=== PATIENT | female | born 1940 | race Caucasian/White ===

== ENCOUNTER 2022-06-11 11:02 | Emergency (ER) | payer MEDICARE, SELFPAY ==
--- NOTE | ~2022-06-11 | CT_ITS ---
EXAMINATION: CT CHEST, ABDOMEN AND PELVIS WITHOUT CONTRAST CLINICAL INFORMATION: Reason for Exam chest pain, hx of kidney disease history of aneurysm. COMPARISON: Chest radiograph done earlier today. TECHNIQUE: Multidetector volumetric imaging was performed from the thoracic inlet through the pubic symphysis without intravenous contrast. Oral contrast: No Sagittal and coronal reformatted images were obtained on the technologist workstation. This CT examination was performed using dose optimization techniques as appropriate, variously including the following: *Automated exposure control. *Adjustment of mA and/or kV according to patient size (this includes techniques or standardized protocols for targeted exams where dose is matched to indication/reason for exam; i.e. extremities or head). *Use of iterative reconstruction technique. Total exam dose-length product 700 mGy-cm FINDINGS: Technically limited study due to lack of intravenous contrast. LUNG: Linear pleuroparenchymal airspace disease is noted in the region of the lingula likely represent hypoventilatory, atelectatic changes or evolving pleural-parenchymal scar. Few tiny calcifications are noted within the right middle lobe, likely represent old granulomatous disease. No suspicious lung nodule and/or mass. Presumed pleural parenchymal scar at both lung apices. PLEURA: No pleural effusion or pneumothorax. MEDIASTINUM: Normal heart size. No pericardial effusion. Extensive calcified right paratracheal lymphadenopathy is present. VASCULAR: Ascending thoracic aortic aneurysm is present, measures 5.0 cm at its maximum dimension (269:8). There is no periaortic hyperdensity to suspect hemorrhage. Given the lack of intravenous contrast, aortic dissection as you know is not excluded. Extensive multivessel coronary artery calcifications are also noted. CHEST WALL/AXILLA: No axillary or internal mammary lymphadenopathy. Intact right sided saline breast implant is noted. The left-sided breast implant appears to be collapsed. LIVER, GALLBLADDER AND BILIARY TREE: The liver is normal in size, shape, and attenuation. No biliary ductal dilatation is present. Circumscribed subcentimeter hypodensities are noted within the right and left lobes of the liver (171:12) likely represent incidental cysts, not optimally characterized. The gallbladder is unremarkable with no evidence of radiopaque gallstones, gallbladder wall thickening, or obvious pericholecystic inflammatory changes. PANCREAS: Normal; no mass or surrounding fluid. SPLEEN: Normal size. Multiple presumed calcified granulomas are present. ADRENAL GLANDS: Normal; no mass. KIDNEYS AND URETERS: The kidneys are normal in size, shape, and attenuation. No hydronephrosis, hydroureter. Sub-5 mm radiodensity is noted within the superior posterior calyx of the left kidney (198:12), most consistent with a nonobstructing calculus GASTROINTESTINAL TRACT: Stomach and small bowel non-dilated. No colonic wall thickening or pericolonic inflammatory changes. Nonvisualized appendix, without any inflammatory changes around the cecum. Colonic diverticulosis related changes are noted. ABDOMINAL WALL: No significant hernia is appreciated. LYMPHOVASCULAR STRUCTURES: Diffuse atherosclerotic disease of the aorta and is branches without aneurysm formation. There are no pathologically enlarged lymphadenopathy present. BLADDER: No focal mass or wall thickening seen. No bladder calculi. PELVIC VISCERA: There is no pelvic mass present. No evidence of any free fluid and/or free air. OSSEOUS STRUCTURES: Moderate to severe mid to anterior compression fracture with retropulsion of small posterior superior fracture fragment into the adjacent anterior epidural space is noted at L1 vertebral body, of indeterminate etiology and chronicity.. CT/CT abdomen pelvis wo con IMPRESSION: 1. Technically limited study due to lack of intravenous contrast. 2. Ascending thoracic aortic aneurysm measuring 5.0 cm. Possibility of superimposed acute aortic syndrome including aortic dissection, and penetrating ulcer are not excluded on this nonintravenous contrast study. However, no evidence of any aortic intramural or periaortic hematoma visualized. 3. Large calcified mediastinal lymph nodes, presumably represent old granulomatous disease. There are no prior studies available for comparison. 4. Presumed calcified granulomas within the right middle lobe and within the spleen. 5. Circumscribed subcentimeter hypodensities are noted within the right and left lobe of the liver, not optimally characterized. 6. Solitary sub-5 mm radiodensity within the superior posterior calyx of the left kidney, most consistent with a nonobstructing calculus. 7. Diffuse atherosclerotic disease of the aorta and is branches without aneurysm formation. 8. Moderate to severe mid to anterior compression fracture of L1 vertebral body with retropulsion of small posterior superior fracture fragment into the adjacent anterior epidural space, of indeterminate etiology and chronicity. The current study was read without the benefit of direct visual comparison with prior studies. Subtle findings can only be apparent when comparison is made with prior studies. If prior studies become available, following comparison, an addendum will be dictated.
--- NOTE | ~2022-06-11 | XR_ITS ---
EXAMINATION: XR CHEST CLINICAL INFORMATION: 81-year-old female with chest pain COMPARISON: None TECHNIQUE: Frontal view of the chest was obtained. FINDINGS: Lungs are clear without nodules infiltrates or pleural effusions seen. There is tortuosity of the descending aorta possibly aneurysmally dilated. There is calcifications in the mediastinal lymph nodes No fracture deformity of ribs #7 and 8 on the right due to remote trauma XR/XR chest 1V IMPRESSION: Tortuous thoracic aorta, due to possibly due to aneurysmal dilatation.
--- NOTE | ~2022-06-11 | CT_ITS ---
EXAMINATION: CT Chest, Abdomen, and Pelvis CLINICAL INFORMATION: Possible dissection COMPARISON: CT chest abdomen pelvis on 06/11/2022 TECHNIQUE: Helical computed tomography was performed from the inferior neck through the pubic symphysis after administration of 70 mL of Omnipaque 350 intravenous contrast. Multiplanar reconstructions are available for interpretation. MIPS images were produced and reviewed. DOSE LOWERING TECHNIQUES: This CT examination was performed using dose optimization techniques as appropriate, variously including the following: - Automated exposure control - Adjustment of mA and/or kV according to patient size (this includes techniques or standardized protocols for targeted exams were dose is matched to indication/reason for exam; i.e. extremities or head) - Use of degenerative construction technique Total DLP is 453 mGy*cm. FINDINGS: Lungs: Pleural/parenchymal scarring at the bilateral apices. Mild bilateral basilar atelectasis. Calcified granulomas in the right middle lobe. Airways: The central airways are patent. The peripheral airways are normal. There is no bronchiectasis. Pleura: The pleural surfaces are normal bilaterally. There is no pleural effusion. There is no pneumothorax. Mediastinum/Meredith: Conglomeration of calcified lymph nodes in the mid mediastinum and right paratracheal regions. Cardiovascular: The heart is globally normal in size. The main pulmonary artery is normal in caliber. There is no pericardial effusion or pericardial thickening. The ascending thoracic aorta is enlarged measuring up to 5.0 cm. There is mild atherosclerotic disease of the arch and descending thoracic aorta. The descending thoracic aorta is normal in caliber. There is a normal 3 vessel branching pattern. There are coronary artery calcifications. Liver: Normal in size and attenuation. Multiple hepatic cysts. Gallbladder and bile ducts: The gallbladder is normal. No intrahepatic or extrahepatic biliary ductal dilatation. Spleen: Normal in size and attenuation. Pancreas: Unremarkable. Adrenal glands: Unremarkable. Right kidney: The right kidney is normal. There is no hydronephrosis or hydroureter. Left kidney: The left kidney is normal. There is no hydronephrosis or hydroureter. 4 mm nonobstructing left lower pole calculus. Lymph nodes: There is no lymphadenopathy in the abdomen or pelvis. Gastrointestinal tract: The stomach, small, and large bowel are normal in course and caliber. Colonic diverticulosis is noted. Urinary bladder: The bladder is normal. Pelvic organs: Multiple calcified fibroids. Vasculature: The abdominal aorta is normal in course and caliber. Mild atherosclerotic disease. The SMA, celiac artery, bilateral renal arteries, and TIFFANY are patent. The iliofemoral arteries are patent. Additional findings: There is no intraperitoneal free air or fluid. Soft tissues: There are bilateral breast implants. The left breast implant is punctured. Osseous structures: L1 compression fracture. Anterolisthesis at L3-L4 and L4-L5. CT/CT angio abdomen pelvis IMPRESSION: Redemonstration of 5 cm ascending aortic aneurysm. No evidence of acute aortic syndrome including dissection or penetrating ulcer.
--- NOTE | 2022-06-11 11:05 | ECG_ITS ---
Test Reason : CP Blood Pressure : / mmHG Vent. Rate : 063 BPM Atrial Rate : 090 BPM P-R Int : 168 ms QRS Dur : 114 ms QT Int : 404 ms P-R-T Axes : 000 -12 130 degrees QTc Int : 413 ms Sinus rhythm with Premature atrial complexes Left ventricular hypertrophy with repolarization abnormality ( R in aVL , [place] product ) Abnormal ECG No previous ECGs available Referred By: Generic ED Physician Electronically Signed By:ULISES PIMENTEL
[2022-06-11 11:13] VITALS: BP 122/89; PULSE 53; RESP 18; TEMP 36.4; O2SAT 96; BMI 23.0
[2022-06-11 11:22] LABS: MANUAL DIFF FLAG NO
[2022-06-11 11:24] LABS: Basophils Absolute Auto 0.1 X10*3/uL (0.0-0.2); Basophils Percent Auto 0.8 % (0-2); Eosinophils Absolute Auto 0.1 X10*3/uL (0.0-0.4); Eosinophils Percent Auto 1.4 % (0-4); Hematocrit 40.7 % (37.0-47.0); Hemoglobin 13.4 g/dl (12.0-16.0); Imm Gran Abs Auto 0.02 X10*3/uL (0.00-0.03); Imm Gran Pct Auto 0.3 % (0.0-0.4); Lymphocytes Absolute Auto 2.1 X10*3/uL (1.2-4.9); Lymphocytes Percent Auto 28.1 % (20-40); Mean Corpuscular HGB Conc 32.9 g/dl (31.0-35.0); Mean Corpuscular Hemoglobin 28.5 pg (27.0-33.0); Mean Corpuscular Volume 86.4 fL (80.0-98.0); Mean Platelet Volume 9.6 fL (9.4-12.3); Monocytes Absolute Auto 0.5 X10*3/uL (0.1-1.2); Monocytes Percent Auto 6.8 % (2-11); Neutrophils Absolute Auto 4.6 x10*3/uL (2.0-8.3); Neutrophils Percent Auto 62.6 % (45-73); Platelet Count 205 X10*3/uL (160-400); Red Blood Count 4.71 X10*6/uL (4.20-5.50); Red Cell Distribution Width 13.7 % (11.0-16.0); White Blood Count 7.3 X10*3/uL (4.8-10.8)
[2022-06-11 11:38] LABS: Anion Gap 15 (12-20); Blood Urea Nitrogen 29 mg/dL (9-16); Calcium 10.3 mg/dL (8.4-10.2); Carbon Dioxide 29 mmol/L (22-29); Chloride 101 mmol/L (96-108); Creatinine Clr Calc Pharmacy 19.6; Estimated Glomerular Filt Rate 26; Glucose Random 109 mg/dL (60-115); Potassium 3.3 mmol/L (3.3-5.1); Sodium 142 mmol/L (135-145)
[2022-06-11 11:45] LABS: Troponin-I High Sensitivity 21.3 ng/L (<3.5-17.0)
--- NOTE | 2022-06-11 12:10 | ED_ITS ---
HPI - Chest Pain General Chief Complaint: Chest Pain Stated Complaint: chest pains Time Seen by Provider: 06/11/22 11:24 Source: patient Mode of arrival: ambulatory Limitations: no limitations History of Present Illness HPI narrative: Patient is an 81 year old female presenting to the emergency department today with left sided chest pain and jaw pain. Patient states that she is from [place] and she [place] in town for a horse show. Patient states that this morning while getting ready, she got a heavy sensation in her left chest that radiated into her left jaw. Patient states that she takes Fleccanide for atrial fibrillation. Patient states that the chest pain lasted 1 hour and resolved. Patient states t hat she does have a history of an aortic aneurysm that is tracked by her observatory director back home. Patient's records via the portal on her phone indicate that the patient's thoracic aortic aneurysm measures 4.5-4.7 cm. Patient states that they have to measure it by US because her kidney disease doesn't allow her to have IV contrast dye. Patient denies any current dizziness, lightheadedness, abdominal pain, nausea, vomiting, fever, chills, blurry vision, double vision, loss of vision, chest pain, difficulty breathing, shortness of breath, back pain, night sweats, pain with urination, increased urinary frequency, increased urinary urgency, blood in her urine or stool, syncope or a near syncopal episode, recent trauma or falls, bowel incontinence, bladder incontinence, bowel retention, bladder retention, or any other complaints at this time. MD complaint: chest pain Timing of current episode: episodic Prior episodes: No Onset: during rest Pain location: left chest Pain radiation: jaw/teeth Severity: mild Pain scale (0-10): 4 Quality: heaviness Relieving factors: nothing Exacerbating factors: nothing Treatment prior to arrival: none Risk Factors Thoracic aortic dissection risk factors: history of thoracic aortic aneurysm Related Data Allergies Allergy/AdvReac Type Severity Reaction Status Date / Time shellfish derived Allergy Intermediate Swelling Verified 06/11/22 11:13 Review of Systems Constitutional: Constitutional: Reports no additional constitutional complaints, Denies chills, Denies fever(s) and Denies night sweats Eyes: Eyes: Reports no additional eye complaints, Denies blurry vision, Denies change in vision, Denies diplopia, Denies eye discharge, Denies loss of vision and Denies eye pain ENT: Denies dizziness Cardiovascular: Cardiovascular: Reports no additional cardiovascular complaints, Denies chest pain, Denies lightheadedness, Denies Loss of Consciousness and Denies dyspnea Respiratory: Respiratory: Reports no additional respiratory complaints and Denies dyspnea Gastrointestinal: Gastrointestinal: Reports no additional gastrointestinal complaints, Denies abdominal pain, Denies melena, Denies hematochezia, Denies change in bowel habits and Denies change in stool character Genitourinary: Genitourinary: Denies hematuria, Denies urinary frequency, Denies dysuria, Denies urinary incontinence, Denies urinary hesitancy and Denies urinary urgency Musculoskeletal: Musculoskeletal: Reports no additional musculoskeletal complaints, Denies numbness and Denies tingling Neurologic: Denies dizziness, Denies loss of vision, Denies numbness and Denies tingling Psychiatric: Psychiatric: Reports no additional psychiatric complaints Endocrine: Endocrine: Reports no additional endocrine complaints Hematologic/Lymphatic: Hematologic/Lymphatic: Reports no additional hematologic/lymphatic complaints Allergic/Immunologic: Allergic/Immunologic: Reports no additional allergic/immunologic complaints PMFSH Past Medical History Attestation statement: The following information was validated with the patient. Source: old records reviewed Social History Social History Advance Directives: No Advance Directives Information Provided: No Physical Exam Vital Signs: Vital Signs: Last Vital Signs Temp 97.5 F 06/11/22 11:13 Pulse 65 06/11/22 14:23 Resp 22 H 06/11/22 14:23 BP 148/89 H 06/11/22 14:23 Pulse Ox 97 06/11/22 14:23 O2 Del Method 06/11/22 14:23 BMI result Body Mass Index 23.0 Const: General: cooperative, no acute distress, alert and awake Nutritional Appearance: well nourished Orientation/consciousness: patient oriented x3 Limitations: no limitations HEENT: Head: Yes normal to inspection and Yes atraumatic Ears: hearing grossly normal bilaterally and external ears normal General nose exam: Normal external nose present, no nasal discharge noted and no epistaxis Face and sinus: Yes normal facial exam, No abrasion and No laceration Mouth: Normal oral and palatal mucosa present, no drooling and no muffled voice Eyes: General: appearance normal, both eyes and all related structures Periorbital: periorbital findings normal Eyelids: Yes eyelids normal Conjunctivae: conjunctivae normal Pupils: Equal, round and reactive pupils present EOM: EOMs intact bilaterally Neck: Neck: Yes normal visual inspection, Yes full ROM and Yes no ly mphadenopathy Chest: Chest palpation & inspection: normal inspection of the chest Resp: Effort & Inspection: normal respiratory effort and able to speak in complete sentences Auscultation: clear to auscultation bilaterally Cardio: Rate: regular rate Rhythm: regular rhythm GI: Inspection: Yes normal to inspection Neuro: General: patient oriented x3 and moves all extremities Cranial nerves: Yes Equal, round and reactive pupils present Cognition (Neuro): normal cognition Motor exam (neuro): 5/5 motor strength present throughout Sensory Exam: Normal double simultaneous stimulation for sensation Coordination: [id number] test normal Extrem: General: Yes normal to inspection, Yes full ROM and Yes capillary refill normal Psych: Appearance: grossly normal Mental Status: mental status grossly normal Affect: normal affect Attitude: cooperative Thought process: Normal thought process present Thought content: Normal thought content present Insight: Good insight present (Psych) Course Consultations Consultation #1: Spoke to Dr. Aldana who recommended the patient be transferred to [facility] for possible echo. Time: 16:00 Consultation #2: Spoke to [facility] transfer line. Dr. Zaragoza from cardiothoracic surgery was paged. Time: 16:10 Consultation #3: Spoke to [facility] cardiothoracic surgeon Dr. Zaragoza who recommended the patient have a CTA and if that is negative for dissection, she follow up with her observatory director back in [place]. Time: 16:30 MDM - Chest Pain MDM Narrative Medical decision making narrative: Patient is an 81 year old female presenting to the emergency department today with resolved chest pain. Patient's physical exam was unremarkable. Patient did not have any repeat chest pain while in the department. Patient's blood work showed an elevated creatinine of 1.86, a BUN of 29, and a troponin of 21.3. Patient's repeat troponin was 21.8. When reviewing the patient's previous labs from her providers back home, the elevated creatinine, decreased GFR, and elev ated BUN are chronic for the patient secondary to her kidney disease. Patient's initial EKG and repeat EKG were unremarkable. Patient's chest x-ray showed a tortuous thoracic aorta possibly due to aneurysmal dilatation. Patient's chest CT without contrast showed an ascending thoracic aorta aneurysm measuring 5.0cm, unclear if superimposed acute aortic syndrome present due to lack of IV contrast. After conversation with Dr. Aldana and Dr. Zaragoza from [facility], and the patient, performing a CTA of the chest was decided on to definitively rule out an acute aortic process. Patient's CTA of the chest showed a 5.0 cm ascending aortic aneurysm with no evidence of acute aortic syndrome including dissection or penetrating ulcer. Patient's scans did show multiple incidental findings that I recommended the patient follow up with on with her PCP. I explained my physical exam findings as well as all test results to the patient and the patient's children Keturah. . I answered all questions asked by the patient and the patient's children. I stressed the importance of the patient taking her medication as prescribed. I stressed the importance of the patient following up with her primary care provider and her observatory director. I stressed the importance of the patient returning to the emergency department immediately if her symptoms were to worsen or if she were to develop any dizzin ess, shortness of breath, difficulty breathing, chest pain, blurry vision, loss of vision, nausea, vomiting, abdominal pain, fever, chills, back pain, or any other complaints. Patient and the patient's children verbalized agreement and understanding with this treatment plan and discharge. Differential Diagnosis Differential diagnosis: Likely atypical chest pain and chest pain Differential diagnosis: Dissection Medical Records Data Attestation: I reviewed the patient's medical records. Lab Data Attestation: I reviewed the patient's lab results. Result diagrams: 06/11/22 11:17 06/11/22 11:17 Labs: Lab Results 06/11/22 06/11/22 06/11/22 Range/Units 11:17 11:17 11:17 WBC 7.3 (4.8-10.8) X10*3/uL RBC 4.71 (4.20-5.50) X10*6/uL Hgb 13.4 (12.0-16.0) g/dl Hct 40.7 (37.0-47.0) % MCV 86.4 (80.0-98.0) fL MCH 28.5 (27.0-33.0) pg MCHC 32.9 (31.0-35.0) g/dl RDW 13.7 (11.0-16.0) % Plt Count 205 (160-400) X10*3/uL MPV 9.6 (9.4-12.3) fL Immature Gran % (Auto) 0.3 (0.0-0.4) % Neut % (Auto) 62.6 (45-73) % Lymph % (Auto) 28.1 (20-40) % [place] % (Auto) 6.8 (2-11) % Eos % (Auto) 1.4 (0-4) % Baso % (Auto) 0.8 (0-2) % Lymph # (Auto) 2.1 (1.2-4.9) X10*3/uL [place] # (Auto) 0.5 (0.1-1.2) X10*3/uL Eos # (Auto) 0.1 (0.0-0.4) X10*3/uL Baso # (Auto) 0.1 (0.0-0.2) X10*3/uL Abs Immat Gran (auto) 0.02 (0.00-0.03) X10*3/uL Absolute Neuts (auto) 4.6 (2.0-8.3) x10*3/uL Absolute Nucleated RBC 0.000 (0.0-0.012) X10*3/uL Nucleated RBC % (auto) 0.0 (0.0-0.2) /100WBC Sodium 142 (135-145) mmol/L Potassium 3.3 (3.3-5.1) mmol/L Chloride 101 (96-108) mmol/L Carbon Dioxide 29 (22-29) mmol/L Anion Gap 15 (12-20) BUN 29 H (9-16) mg/dL Creatinine 1.86 H (0.5-1.4) mg/dL Estim Creat Clear Calc 19.6 Estimated GFR 26 Random Glucose 109 (60-115) mg/dL Calcium 10.3 H (8.4-10.2) mg/dL Troponin I High Sens 21.3 H (<3.5-17.0) ng/L COVID-19 ([facility]) (Negative) COVID-19 Clin Com 06/11/22 06/11/22 Range/Units 13:26 16:22 WBC (4.8-10.8) X10*3/uL RBC (4.20-5.50) X10*6/uL Hgb (12.0-16.0) g/dl Hct (37.0-47.0) % MCV (80.0-98.0) fL MCH (27.0-33.0) pg MCHC (31.0-35.0) g/dl RDW (11.0-16.0) % Plt Count (160-400) X10*3/uL MPV (9.4-12.3) fL Immature Gran % (Auto) (0.0-0.4) % Neut % (Auto) (45-73) % Lymph % (Auto) (20-40) % [place] % (Auto) (2-11) % Eos % (Auto) (0-4) % Baso % (Auto) (0-2) % Lymph # (Auto) (1.2-4.9) X10*3/uL [place] # (Auto) (0.1-1.2) X10*3/uL Eos # (Auto) (0.0-0.4) X10*3/uL Baso # (Auto) (0.0-0.2) X10*3/uL Abs Immat Gran (auto) (0.00-0.03) X10*3/uL Absolute Neuts (auto) (2.0-8.3) x10*3/uL Absolute Nucleated RBC (0.0-0.012) X10*3/uL Nucleated RBC % (auto) (0.0-0.2) /100WBC Sodium (135-145) mmol/L Potassium (3.3-5.1) mmol/L Chloride (96-108) mmol/L Carbon Dioxide (22-29) mmol/L Anion Gap (12-20) BUN (9-16) mg/dL Creatinine (0.5-1.4) mg/dL Estim Creat Clear Calc Estimated GFR Random Glucose (60-115) mg/dL Calcium (8.4-10.2) mg/dL Troponin I High Sens 21.8 H (<3.5-17.0) ng/L COVID-19 ([facility]) Negative (Negative) COVID-19 Clin Com See Note Imaging Data Chest x-ray: Attestation: I personally reviewed and interpreted this imaging study as follows: My impression: Tortuous thoracic aorta Radiologist's impression: EXAMINATION: XR CHEST CLINICAL INFORMATION: 81-year-old female with chest pain COMPARISON: None TECHNIQUE: Frontal view of the chest was obtained. FINDINGS: Lungs are clear without nodules infiltrates or pleural effusions seen. There is tortuosity of the descending aorta possibly aneurysmally dilated. There is calcifications in the mediastinal lymph nodes No fracture deformity of ribs #7 and 8 on the right due to remote trauma XR/XR chest 1V IMPRESSION: Tortuous thoracic aorta, due to possibly due to aneurysmal dilatation. Dictated By: Manish Colunga MD Signed By: Electronically signed by Manish Colunga MD 06/11/[address] Chest, abdomen, pelvis without contrast: Attestation: I personally reviewed and interpreted this imaging study as follows: My impression: Ascending thoracic aortic aneurysm. Radiologist's impression: EXAMINATION: CT CHEST, ABDOMEN AND PELVIS WITHOUT CONTRAST CLINICAL INFORMATION: Reason for Exam chest pain, hx of kidney disease history of aneurysm. COMPARISON: Chest radiograph done earlier today. TECHNIQUE: Multidetector volumetric imaging was performed from the thoracic inlet through the pubic symphysis without intravenous contrast. Oral contrast: No Sagittal and coronal reformatted images were obtained on the technologist workstation. This CT examination was performed using dose optimization techniques as appropriate, variously including the following: *Automated exposure control. *Adjustment of mA and/or kV according to patient size (this includes techniques or standardized protocols for targeted exams where dose is matched to indication/reason for exam; i.e. extremities or head). *Use of iterative reconstruction technique. Total exam dose-length product 700 mGy-cm FINDINGS: Technically limited study due to lack of intravenous contrast. LUNG: Linear pleuroparenchymal airspace disease is noted in the region of the lingula likely represent hypoventilatory, atelectatic changes or evolving pleural-parenchymal scar. Few tiny calcifications are noted within the right middle lobe, likely represent old granulomatous disease. No suspicious lung nodule and/or mass. Presumed pleural parenchymal scar at both lung apices. PLEURA: No pleural effusion or pneumothorax. MEDIASTINUM: Normal heart size.? No pericardial effusion. Extensive calcified right paratracheal lymphadenopathy is present. VASCULAR: Ascending thoracic aortic aneurysm is present, measures 5.0 cm at its maximum dimension (269:8). There is no periaortic hyperdensity to suspect hemorrhage. Given the lack of intravenous contrast, aortic dissection as you know is not excluded. Extensive multivessel coronary artery calcifications are also noted. CHEST WALL/AXILLA: No axillary or internal mammary lymphadenopathy. Intact right sided saline breast implant is noted. The left-sided breast implant appears to be collapsed. LIVER, GALLBLADDER AND BILIARY TREE: The liver is normal in size, shape, and attenuation. No biliary ductal dilatation is present. Circumscribed subcentimeter hypodensities are noted within the right and left lobes of the liver (171:12) likely represent incidental cysts, not optimally characterized. The gallbladder is unremarkable with no evidence of radiopaque gallstones, gallbladder wall thickening, or obvious pericholecystic inflammatory changes.? PANCREAS: Normal; no mass or surrounding fluid.? SPLEEN: Normal size. Multiple presumed calcified granulomas are present. ADRENAL GLANDS: Normal; no mass.? KIDNEYS AND URETERS: The kidneys are normal in size, shape, and attenuation. No hydronephrosis, hydroureter. Sub-5 mm radiodensity is noted within the superior posterior calyx of the left kidney (198:12), most consistent with a nonobstructing calculus GASTROINTESTINAL TRACT: Stomach and small bowel non-dilated.? No colonic wall thickening or pericolonic inflammatory changes. Nonvisualized appendix, without any inflammatory changes around the cecum. Colonic diverticulosis related changes are noted. ABDOMINAL WALL: No significant hernia is appreciated.? LYMPHOVASCULAR STRUCTURES: Diffuse atherosclerotic disease of the aorta and is branches without aneurysm formation. There are no pathologically enlarged lymphadenopathy present.? BLADDER: No focal mass or wall thickening seen.? No bladder calculi.? PELVIC VISCERA: There is no pelvic mass present. No evidence of any free fluid and/or free air. OSSEOUS STRUCTURES: Moderate to severe mid to anterior compression fracture with retropulsion of small posterior superior fracture fragment into the adjacent anterior epidural space is noted at L1 vertebral body, of indeterminate etiology and chronicity..? CT/CT chest wo con IMPRESSION: ? 1. Technically limited study due to lack of intravenous contrast. 2. Ascending thoracic aortic aneurysm measuring 5.0 cm. Possibility of superimposed acute aortic syndrome including aortic dissection, and penetrating ulcer are not excluded on this nonintravenous contrast study. However, no evidence of any aortic intramural or periaortic hematoma visualized. 3. Large calcified mediastinal lymph nodes, presumably represent old granulomatous disease. There are no prior studies available for comparison. 4. Presumed calcified granulomas within the right middle lobe and within the spleen. 5. Circumscribed subcentimeter hypodensities are noted within the right and left lobe of the liver, not optimally characterized. 6. Solitary sub-5 mm radiodensity within the superior posterior calyx of the left kidney, most consistent with a nonobstructing calculus. 7. Diffuse atherosclerotic disease of the aorta and is branches without aneurysm formation. 8. Moderate to severe mid to anterior compression fracture of L1 vertebral body with retropulsion of small posterior superior fracture fragment into the adjacent anterior epidural space, of indeterminate etiology and chronicity. The current study was read without the benefit of direct visual comparison with prior studies. Subtle findings can only be apparent when comparison is made with prior studies. ? If prior studies become available, following comparison, an addendum will be dictated. Dictated By: Wood Sullivan MD Signed By: Electronically signed by Wood Sullivan MD 06/11/[address] Chest, abdomen, pelvis with contrast: Attestation: I personally reviewed and interpreted this imaging study as follows: My impression: Redemonstration of 5 cm ascending aortic aneurysm Radiologist's impression: EXAMINATION: CT Chest, Abdomen, and Pelvis CLINICAL INFORMATION: Possible dissection? COMPARISON: CT chest abdomen pelvis on 06/11/2022? TECHNIQUE: Helical computed tomography was performed from the inferior neck through the pubic symphysis after administration of 70 mL of Omnipaque 350 intravenous contrast. Multiplanar reconstructions are available for interpretation.? MIPS images were produced and reviewed. DOSE LOWERING TECHNIQUES: This CT examination was performed using dose optimization techniques as appropriate, variously including the following: ?- Automated exposure control ?- Adjustment of mA and/or kV according to patient size (this includes techniques or standardized protocols for targeted exams were dose is matched to indication/reason for exam; i.e. extremities or head) ?- Use of degenerative construction technique Total DLP is 453 mGy*cm. FINDINGS: Lungs: Pleural/parenchymal scarring at the bilateral apices. Mild bilateral basilar atelectasis. Calcified granulomas in the right middle lobe. Airways:? The central airways are patent.? The peripheral airways are normal.? There is no bronchiectasis. Pleura:? The pleural surfaces are normal bilaterally.? There is no pleural effusion.? There is no pneumothorax.? Mediastinum/Meredith:? Conglomeration of calcified lymph nodes in the mid mediastinum and right paratracheal regions. Cardiovascular:? The heart is globally normal in size.? The main pulmonary artery is normal in caliber.? There is no pericardial effusion or pericardial thickening.? The ascending thoracic aorta is enlarged measuring up to 5.0 cm. There is mild atherosclerotic disease of the arch and descending thoracic aorta. The descending thoracic aorta is normal in caliber. There is a normal 3 vessel branching pattern. There are coronary artery calcifications. Liver: Normal in size and attenuation. Multiple hepatic cysts. Gallbladder and bile ducts: The gallbladder is normal.? No intrahepatic or extrahepatic biliary ductal dilatation. Spleen: Normal in size and attenuation. Pancreas: Unremarkable.? Adrenal glands: Unremarkable. Right kidney: The right kidney is normal. There is no hydronephrosis or hydroureter. Left kidney: The left kidney is normal. There is no hydronephrosis or hydroureter. 4 mm nonobstructing left lower pole calculus. Lymph nodes: There is no lymphadenopathy in the abdomen or pelvis. Gastrointestinal tract: The stomach, small, and large bowel are normal in course and caliber.? Colonic diverticulosis is noted. Urinary bladder: The bladder is normal. Pelvic organs: Multiple calcified fibroids. Vasculature: The abdominal aorta is normal in course and caliber. Mild atherosclerotic disease. The SMA, celiac artery, bilateral renal arteries, and TIFFANY are patent. The iliofemoral arteries are patent. Additional findings: There is no intraperitoneal free air or fluid. Soft tissues: There are bilateral breast implants. The left breast implant is punctured. Osseous structures: L1 compression fracture. Anterolisthesis at L3-L4 and L4-L5. CT/CT angio chest aorta IMPRESSION: ? Redemonstration of 5 cm ascending aortic aneurysm. No evidence of acute aortic syndrome including dissection or penetrating ulcer. Dictated By: Kandace Murray MD Signed By: Electronically signed by Kandace Murray MD 06/11/22 6995 ECG Data ECG #1: Attestation: I personally reviewed and interpreted this ECG as follows: ECG interpretation date: 06/11/22 ECG interpretation time: 11:09 Prior ECG tracings: not available for review Interpretation: Vent. Rate: 063 BPM ? ? Atrial Rate: 090 BPM P-R Int: 168 ms? QRS Dur: 114 ms QT Int: 404 ms ? ? ? P-R-T Axes: 000 -12 130 degrees QTc Int: 413 ms ? Sinus rhythm with Premature atrial complexes Left ventricular hypertrophy with repolarization abnormality ( R in aVL , [place] product ) Abnormal ECG No previous ECGs available DD/ 1109 ECG #2: Attestation: I personally reviewed and interpreted this ECG as follows: ECG interpretation date: 06/11/22 ECG interpretation time: 14:58 Prior ECG tracings: available for review Interpretation: Vent. Rate: 060 BPM ? ? Atrial Rate: 060 BPM P-R Int: 220 ms? QRS Dur: 112 ms QT Int: 448 ms ? ? ? P-R-T Axes: 057 -10 153 degrees QTc Int: 448 ms ? Sinus rhythm with 1st degree A-V block with Premature atrial complexes Left ventricular hypertrophy with repolarization abnormality ( [place] product ) Abnormal ECG When compared with ECG of 11-JUN-2022 11:09, MI interval has increased DD/ 1458 Critical Care Time Critical Care Time Critical Care Time: Yes Total Critical Care Time: 45 Attestation: I spent 45 minutes of Critical Care Time with this patient. This does not include time spent on separately reported billable procedures. Discharge Plan Discharge Clinical Impression: Aortic aneurysm Patient Disposition: Home, Self-Care Additional Instructions: Follow up with your primary care provider and your observatory director. Return to the emergency department immediately if your symptoms worsen or if you develop any dizziness, shortness of breath, difficulty breathing, chest pain, blurry vision, loss of vision, nausea, vomiting, abdominal pain, fever, chills, back pain, or any other complaints. Print Language: Portuguese
[2022-06-11] MEDS: Aspirin 81 MG TAB.CHEW 324 MG PO (12:46)
[2022-06-11] MEDS: 0.9 % Sodium Chloride 1,000 ML 150 ML IVCONT (12:51)
--- NOTE | 2022-06-11 13:07 | PC.NURSE ---
Pt comes in with complaints of CP upon waking this morning, SSCP that radiated into L jaw and arm. Pt denies pain at this time, Pt is A&Ox4, LCA, abd soft, non tender, +BS x 4, IV established, fluids running as per MAR orders. call clay within reach, awairing CT scan at this time. Will continue to monitor.
[2022-06-11 14:07] LABS: Troponin-I High Sensitivity 21.8 ng/L (<3.5-17.0)
[2022-06-11 14:23] VITALS: BP 148/89; PULSE 65; RESP 22; O2SAT 97
--- NOTE | 2022-06-11 14:48 | ECG_ITS ---
Test Reason : CX PAIN Blood Pressure : / mmHG Vent. Rate : 060 BPM Atrial Rate : 060 BPM P-R Int : 220 ms QRS Dur : 112 ms QT Int : 448 ms P-R-T Axes : 057 -10 153 degrees QTc Int : 448 ms Sinus rhythm with 1st degree A-V block with Premature atrial complexes Left ventricular hypertrophy with repolarization abnormality ( Franko product ) Abnormal ECG When compared with ECG of 11-JUN-2022 11:09, IA interval has increased Referred By: Nydia Hauser Electronically Signed By:ULISES PIMENTEL
[2022-06-11 16:48] LABS: COVID-19 Test Negative (Negative); IDNOW Serial# 55D5AD1C
[2022-06-11] MEDS: iohexoL 350 MG/ML 100 ML INFUS..BTL IV (17:39)
== END 2022-06-11 19:58 | disposition home or self-care (01) ==
PROVIDERS: Physician Assistant Medical; Emergency Provider Student in an Organized Health Care Education/Training Program
DX: I71.2 Thoracic aortic aneurysm, without rupture (principal); R07.9 Chest pain, unspecified; Z20.822 Contact with and (suspected) exposure to COVID-19; I48.91 Unspecified atrial fibrillation; N18.9 Chronic kidney disease, unspecified
CPT/HCPCS: 36415; 71045; 71250; 71275; 74174; 74176; 80048; 84484; 85025; 87635; 93005; 96360; 96361; 99285; Q9967